=== PATIENT | male | born 1935 | race African-American/Black ===

== ENCOUNTER 2018-08-29 12:53 | Inpatient (IN) ==
[2018-08-29] MEDS ORDERED: NS 1,000 ML IV ONE (14:16)
[2018-08-29] MEDS ORDERED: ZOFRAN IV ONE (14:16)
[2018-08-29 14:49] LABS: BILIRUBIN URINE NEGATIVE (NEGATIVE); BLOOD URINE TRACE (NEGATIVE); CLARITY CLEAR (CLEAR); COLOR YELLOW; GLUCOSE URINE NEGATIVE (NEGATIVE); KETONE URINE TRACE mg/dL (NEGATIVE); LEUKOCYTES URINE TRACE (NEGATIVE); NITRITE URINE NEGATIVE (NEGATIVE); PROTEIN URINE 1+(30 mg/dL) mg/dL (NEGATIVE); UROBILINOGEN URINE 4 mg/dL
[2018-08-29 14:52] LABS: URINE SOURCE CLEAN CATCH
[2018-08-29 14:53] LABS: URINE CAST NONE SEEN /LPF; URINE CRYSTAL NONE SEEN /HPF; URINE EPITHELIAL CELLS >10 /HPF (<10); URINE YEAST NONE SEEN /HPF
[2018-08-29 14:54] LABS: URINE BACTERIA 2+ /HFP
[2018-08-29 15:06] LABS: BASO# 0.03 X1000 (0.0-0.2); BASO% 0.5 % (0.0-0.8); EOS# 0.07 X1000 (0.0-0.7); EOS% 1.1 % (0.0-10.0); HEMATOCRIT 43.7 % (42.0-52.0); HEMOGLOBIN 14.9 g/dL (14.0-18.0); IMM GRAN# 0.05 X1000 (0.0-0.04); IMM GRAN% 0.8 % (0.0-0.5); LYMPH# 0.69 X1000 (1.2-3.4); LYMPH% 10.8 % (20.5-51.1); MCH 26.5 PG (27-31); MCHC 34.1 g/dL (33-37); MCV 77.8 FL (81-99); MONO# 0.45 X1000 (0.11-0.59); MONO% 7.1 % (1.7-9.3); NEUT# 5.09 X1000 (1.4-6.5); NEUT% 79.7 % (42.2-75.2); PLT 218 X1000 (130-400); RBC 5.62 XMIL (4.7-6.1); RDW 17.3 % (11.5-14.5); WBC 6.38 X1000 (4.8-10.8)
[2018-08-29 15:16] LABS: ALBUMIN 4.6 g/dL (3.5-5.0); CALCIUM 10.1 mg/dL (8.8-10.2); CREATININE 3.4 mg/dL (0.7-1.2); TOTAL BILIRUBIN 2.3 mg/dL (0.20-1.00); TOTAL PROTEIN 7.5 g/dL (6.3-8.3)
--- NOTE | 2018-08-29 17:15 | Diag Imaging Result Doc PS360 ---
EXAM: CT ABD/PELVIS W/ORAL CONT ONLY HISTORY: PAIN TECHNIQUE: CT abdomen and pelvis without contrast COMPARISON: None. FINDINGS: There is a moderate-sized right-sided pleural effusion measuring 4.0 cm posteriorly and inferiorly in the midline with a tiny left pleural effusion measuring under 1 cm. Heart is mildly enlarged. There is basilar atelectasis. No calcified gallstones or adjacent inflammation. No focal hepatic normality identified on this noncontrasted exam. The spleen is not enlarged. No focal pancreatic abnormality. There is thickening to the adrenal glands. No renal stones. No hydronephrosis. No aortic aneurysm. Moderate atherosclerosis. No bowel obstruction. Normal appendix. No abscess. There is a small amount of ascites. The prostate measures 5.0 x 5.0 cm. The urinary bladder is minimally distended.1 there are degenerative changes at L5-S1. There are bilateral pars defect to the L5 vertebra, but no subluxation. IMPRESSION: 1.Pleural effusions with basilar atelectasis and mild cardiomegaly 2.Small amount of ascites 3.Prominent prostate This exam was performed using automated exposure control, adjustment of mA or kV according to patient size, and/or use of iterative reconstruction technique. Electronically signed by Flavio Paniagua 08/29/2018 5:13 PM
[2018-08-29 18:44] LABS: INR 1.22
[2018-08-29 18:45] LABS: PTT 39.6 Seconds (22.3-41.8)
--- NOTE | 2018-08-29 19:06 | PROVIDER DOCUMENTATION ---
This chart was entered by Kacy Dawn Scribe, acting as scribe for Viktor Simon DO. HPI-General Adult - General Source: patient - History of Present Illness -Gen Adult Nature of Presenting Problems: 83 yom presents to ED cc decreased appetite, weight loss, nausea, vomiting and constipation for 1 week. Pt denies pain. Pt has hx of HTN and gout. <Viktor Simon - Last Filed: 08/29/18 19:01> <Primitivo Hood - Last Filed: 08/29/18 23:23> - General Chief Complaint: Weight Loss Stated Complaint: NO APPETITE Time Seen by Provider: 08/29/18 14:01 Allergies/Adverse Reactions: Patient Allergies Allergy/AdvReac Type Severity Reaction Status Date / Time No Known Allergies Allergy Verified 04/30/16 11:43 Home Medications: Home Medication List Medication Instructions Recorded Confirmed Last Taken Type Chlorthalidone 12.5 mg PO DAILY 04/30/16 04/30/16 04/30/16 History Febuxostat [Uloric] 40 mg PO DAILY 04/30/16 04/30/16 04/30/16 History Hydralazine HCl 50 mg PO Q8H 04/30/16 04/30/16 04/30/16 History Losartan Potassium 100 mg PO DAILY 04/30/16 04/30/16 04/30/16 History Methylprednisolone [Medrol Dosepak] 4 mg PO DIRECTED #1 package 04/30/16 Unknown Rx Terazosin HCl 2 mg PO QHS 04/30/16 04/30/16 1 Day Ago History ~04/29/16 Review of Systems - Adult - REVIEW OF SYSTEMS - ADULT Constitutional: reports: see HPI, fatique. denies: chills, fever Eyes: reports: no symptoms reported Ears, Nose, Mouth & Throat: reports: no symptoms reported Cardiovascular: reports: no symptoms reported Respiratory: reports: no symptoms reported Gastrointestinal: reports: see HPI, constipation, nausea, poor appetite, vomiting. denies: diarrhea Genitourinary: reports: no symptoms reported Musculoskeletal: reports: no symptoms reported Integumentary: reports: no symptoms reported Neurological: reports: no symptoms reported Psychiatric: reports: no symptoms reported Endocrine: reports: no symptoms reported Hematologic/Lymphatic: reports: no symptoms reported Allergic/Immunologic: reports: no symptoms reported All Other Systems: Reviewed and Negative <Viktor Simon - Last Filed: 08/29/18 19:01> Past History - Adult - PAST MEDICAL HISTORY-ADULT Review of Records: reports: Nursing Assessment Review, Medications Reviewed, Social history reviewed & non-contributory. Major Childhood Illnesses: reports: denies history Cardiovascular: reports: denies history Respiratory: reports: denies history Gastrointestinal: reports: denies history Obstetrical/Gynecological: reports: denies history Genitourinary: reports: denies history Musculoskeletal: reports: denies history Neurological: reports: denies history Endocrine/Immune: reports: denies history Other Conditions: reports: denies history - IMMUNIZATION STATUS Childhood Immunizations: See Nurse Assessment Flu Vaccine: See Nurse Assessment - FAMILY HISTORY Family History: reviewed, not pertinent <Viktor Simon - Last Filed: 08/29/18 19:01> Physical Exam-General - PHYSICAL EXAM-ADULT Initial Vital Signs Reviewed: Yes - CONSTITUTIONAL General Appearance: appears well, alert, no apparent distress, thin. negative: anxious, combative - EYES Eyes: PERRL/EOMI, pink conjunctivae. negative: photophobia - HEAD, EARS, NOSE, MOUTH & THROAT HENMT: hearing deficit, TM abnormal (scarring right TM), TM obscurred by cerumen . negative: angioedema - NECK Neck: non-tender, full range of motion, supple, normal inspection. negative: Brudzinski's sign, carotid bruit - RESPIRATORY Respiratory: chest non-tender, lungs clear, normal breath sounds, no pleuratic chest pain, no respiratory distress, no accessory muscle use. negative: crackles, rales, rhonchi - CARDIOVASCULAR Cardiovascular: normal peripheral pulses, no edema, no gallop, no JVD, systolic murmur (1/6 at 2nd left intercostal space). negative: bradycardia, tachycardia - GASTROINTESTINAL (ABDOMEN) Abdominal Exam: normal bowel sounds, non tender, soft, no organomegaly. negative: rigid, rebound, tenderness - LYMPHATIC Lymphatic: no adenopathy. negative: striations - MUSCULOSKELETAL Back Exam: normal inspection. negative: swelling Extremity: normal range of motion, normal inspection. negative: deformity - SKIN Integumentary: normal color, normal turgor, warm/dry. negative: diaphoresis, jaundice - NEUROLOGIC Neurologic: hot braider II-XII nml as tested, grossly normal, no motor/sensory deficits. negative: facial droop, focal weakness - PSYCHIATRIC Psych/Mental Status: normal mood/affect, normal thought content, normal thought process, oriented x 3. negative: anxious <Viktor Simon - Last Filed: 08/29/18 19:01> Progress - PLAN OF CARE/RESULTS Progress/Plan/Lab Results: Vital Signs - 8 hr 08/29/18 13:00 Temperature 97.9 F Pulse Rate 105 H Respiratory Rate 18 Blood Pressure 126/92 O2 Sat by Pulse Oximetry 99 Laboratory Results - last 24 hr 08/29/18 14:30 Urine Color YELLOW Urine Clarity CLEAR Urine pH 5.0 Ur Specific Dahlgren 1.020 Urine Protein 1+(30 mg/dL) A Urine Ketones TRACE Urine Blood TRACE Urine Nitrite NEGATIVE Urine Bilirubin NEGATIVE Urine Urobilinogen 4 Urine WBC TRACE A Urine Glucose NEGATIVE Orders Category Date Time Status IV Insertion ORDERED Care 08/29/18 14:[address] ABD/PELVIS W/PO AND IV CON [CT] Stat Exams 08/29/18 14:13 Ordered CBC WITH ELECTRONIC DIFF [HEME] Stat Lab 08/29/18 14:38 Results COMPREHENSIVE METABOLIC PANEL [CHEM] Stat Lab 08/29/18 14:38 Received LIPASE [CHEM] Stat Lab 08/29/18 14:38 Received UA NIMS W/REFLEX CULT PL [URINALYSIS] Stat Lab 08/29/18 14:30 Results 0.9% Sodium Chloride Inj [Ns] 1,000 ml Med 08/29/18 14:16 Active IV 999 mls/hr Ondansetron [Zofran] Med 08/29/18 14:16 Discontinued 4 mg IV NOW ONE Result Diagrams: 08/29/18 14:38 08/29/18 14:38 - REASSESSMENT Reassessment #1 Status: improving (WITH HYDRATION) - CT/MRI 1 CT Study: Abdomen, Pelvis Impression: See EMR Report (IMPRESSION: 1.Pleural effusions with basilar atelectasis and mild cardiomegaly 2.Small amount of ascites 3.Prominent prostate This exam was performed using automated exposure control, adjustment of mA or kV according to patient size, and/or use of iterative reconstruction technique. Electronically signed by Flavio Paniagua 08/29/2018 5:13 PM) - CONSULTS/PCP/HOSPITALIST Notification #1 *Consult/PCP/Hospitalist*: DISCUSSED WITH [place] [facility] : THEY ARE SENDING PAPER WORK TO FILL OUT Time Discussed: 19:00 - CHANGE OF SHIFT REPORT (ED Provider) 1 Report Given and Care Transferred to:: DR ZHU [id number] [place] --PAPER WORK AND TRANSFER <Viktor Simon - Last Filed: 08/29/18 19:01> - PLAN OF CARE/RESULTS Progress/Plan/Lab Results: Vital Signs - 8 hr 08/29/18 20:03 08/29/18 21:37 08/29/18 23:05 Temperature 97.4 F L 97.9 F Pulse Rate 94 H 96 H Respiratory Rate 12 18 Blood Pressure 113/85 109/81 O2 Sat by Pulse Oximetry 98 98 08/29/18 23:06 Temperature Pulse Rate 93 H Respiratory Rate 20 Blood Pressure 115/83 O2 Sat by Pulse Oximetry 98 Laboratory Results - last 24 hr 08/29/18 08/29/18 08/29/18 14:30 14:38 14:38 WBC 6.38 RBC 5.62 Hgb 14.9 Hct 43.7 MCV 77.8 L MCH 26.5 L MCHC 34.1 RDW Std Deviation 17.3 H Plt Count 218 MPV Not Reportable Immature Gran % (Auto) 0.8 H Neut % (Auto) 79.7 H Lymph % (Auto) 10.8 L Taney % (Auto) 7.1 Eos % (Auto) 1.1 Baso % (Auto) 0.5 Immature Gran # (Auto) 0.05 H Neut # (Auto) 5.09 Lymph # (Auto) 0.69 L Taney # (Auto) 0.45 Eos # (Auto) 0.07 Baso # (Auto) 0.03 Segmented Neutrophils Not Reportable PT INR PTT (Actin FS) Sodium 146 H Potassium 5.0 Chloride 107 Carbon Dioxide 21 L Anion Gap 18 BUN 55 H Creatinine 3.4 H Estimated GFR/1.73 m2 17 BUN/Creatinine Ratio 16 Glucose 117 H Calculated Osmolality 307 Calcium 10.1 Total Bilirubin 2.30 H AST 33 ALT 22 Alkaline Phosphatase 74 Total Protein 7.5 Albumin 4.6 Globulin 3.0 Albumin/Globulin Ratio 2.0 Lipase 54 Plasma Lactate Urine Source CLEAN CATCH Urine Color YELLOW Urine Clarity CLEAR Urine pH 5.0 Ur Specific Dahlgren 1.020 Urine Protein 1+(30 mg/dL) A Urine Ketones TRACE Urine Blood TRACE Urine Nitrite NEGATIVE Urine Bilirubin NEGATIVE Urine Urobilinogen 4 Urine Microscopic RBC 10-20 A Urine WBC TRACE A Urine Microscopic WBC 10-20 A Ur Epithelial Cells >10 A Urine Crystals NONE SEEN Urine Bacteria 2+ Urine Casts NONE SEEN Urine Yeast NONE SEEN Urine Glucose NEGATIVE 08/29/18 08/29/18 14:38 17:33 WBC RBC Hgb Hct MCV MCH MCHC RDW Std Deviation Plt Count MPV Immature Gran % (Auto) Neut % (Auto) Lymph % (Auto) Taney % (Auto) Eos % (Auto) Baso % (Auto) Immature Gran # (Auto) Neut # (Auto) Lymph # (Auto) Taney # (Auto) Eos # (Auto) Baso # (Auto) Segmented Neutrophils PT 16.0 INR 1.22 PTT (Actin FS) 39.6 Sodium Potassium Chloride Carbon Dioxide Anion Gap BUN Creatinine Estimated GFR/1.73 m2 BUN/Creatinine Ratio Glucose Calculated Osmolality Calcium Total Bilirubin AST ALT Alkaline Phosphatase Total Protein Albumin Globulin Albumin/Globulin Ratio Lipase Plasma Lactate 3.7 H Urine Source Urine Color Urine Clarity Urine pH Ur Specific Dahlgren Urine Protein Urine Ketones Urine Blood Urine Nitrite Urine Bilirubin Urine Urobilinogen Urine Microscopic RBC Urine WBC Urine Microscopic WBC Ur Epithelial Cells Urine Crystals Urine Bacteria Urine Casts Urine Yeast Urine Glucose Orders Category Date Time Status IV Insertion ORDERED Care 08/29/18 14:[address] ABD/PELVIS W/ORAL CONT ONLY [CT] Stat Exams 08/29/18 16:[address] THORAX W/O CONTRAST [CT] Stat Exams 08/29/18 20:44 Completed BLOOD CULTURE [BLDCUL] Stat Lab 08/29/18 17:33 Results CBC WITH ELECTRONIC DIFF [HEME] Stat Lab 08/29/18 14:38 Completed COMPREHENSIVE METABOLIC PANEL [CHEM] Stat Lab 08/29/18 14:38 Completed LACTATE, PLASMA [CHEM] Stat Lab 08/29/18 17:33 Completed LIPASE [CHEM] Stat Lab 08/29/18 14:38 Completed PROTIME WITH INR [COAG] Stat Lab 08/29/18 14:38 Completed PTT [COAG] Stat Lab 08/29/18 14:38 Completed UA NIMS W/REFLEX CULT PL [URINALYSIS] Stat Lab 08/29/18 14:30 Completed URINE CULTURE [RM] Routine Lab 08/29/18 14:30 Received 0.9% Sodium Chloride Inj [Ns] 1,000 ml Med 08/29/18 14:16 Discontinued IV 999 mls/hr Ondansetron [Zofran] Med 08/29/18 14:16 Discontinued 4 mg IV NOW ONE Transfer/Admit Order [TRANSFER] Routine Transfer 08/29/18 19:39 Ordered Result Diagrams: 08/29/18 14:38 08/29/18 14:38 <Primitivo Hood - Last Filed: 08/29/18 23:23> Departure - Departure Date of Disposition Decision: 08/29/18 Certified Medical Emergency: Emergent - Critical Care Note This patient required my direct & personal management of CC.: No <Viktor Simon - Last Filed: 08/29/18 19:01> - Departure Time of Disposition Decision: 23:22 Certified Medical Emergency: Emergent - Critical Care Note This patient required my direct & personal management of CC.: No <Primitivo Hood - Last Filed: 08/29/18 23:23> - Departure DIAGNOSIS: Pleural effusion, right, Hyperbilirubinemia, CHF (congestive heart failure) Acute renal failure Qualifiers: Acute renal failure type: unspecified Qualified Code(s): N17.9 - Acute kidney failure, unspecified Disposition: ADMITTED INPATIENT 09 Condition: Stable Referrals and Follow-Ups: None,PCP [Primary Care Provider] - Attestation - Physician/ SHANDRA Attestation Patient care was provided by Advanced Practice Provider:: No The physician spent face to face time with patient:: Yes Advanced Practice Provider documentation review:: Supervising physician onsite and consulted in the evaluation and care of this patient. The physician did have a face to face encounter with the patient. <Viktor Simon - Last Filed: 08/29/18 19:01> - Physician/ SHANDRA Attestation Patient care was provided by Advanced Practice Provider:: No The physician spent face to face time with patient:: Yes Advanced Practice Provider documentation review:: Supervising physician onsite and consulted in the evaluation and care of this patient. The physician did have a face to face encounter with the patient. <Primitivo Hood - Last Filed: 08/29/18 23:23> This chart was documented by the indicated scribe, (Kacy Dawn Scribe) and accurately reflects the services I performed and decisions made by me, Viktor Simon DO, as attested by the provider's signature.
--- NOTE | 2018-08-29 21:28 | Diag Imaging Result Doc PS360 ---
EXAM: CT THORAX W/O CONTRAST HISTORY: pleural effusion TECHNIQUE: CT chest without contrast COMPARISON: None. FINDINGS: There is a moderate-sized right pleural effusion measuring 4.2 cm posteriorly and inferiorly in the midline with a small left effusion measuring less than 1 cm. The heart is enlarged. There is pulmonary edema. Lower lobe atelectasis, right greater than left. No air bronchograms. No bronchiectasis. Prominent atherosclerosis. There are several calcified mediastinal nodes. IMPRESSION: Congestive failure. This exam was performed using automated exposure control, adjustment of mA or kV according to patient size, and/or use of iterative reconstruction technique. Electronically signed by Flavio Paniagua 08/29/2018 9:25 PM
[2018-08-30] MEDS ORDERED: NS 1,000 ML IV ONE (00:23)
[2018-08-30] MEDS: LOPRESSOR PO SCH ×3 (00:55→21:08)
[2018-08-30] MEDS: SODIUM BICARBONATE PO SCH ×3 (00:56→21:09)
[2018-08-30] MEDS: ZYLOPRIM PO SCH ×2 (00:56→08:33)
[2018-08-30 09:14] LABS: BASO# 0.02 X1000 (0.0-0.2); BASO% 0.3 % (0.0-0.8); EOS# 0.17 X1000 (0.0-0.7); EOS% 2.6 % (0.0-10.0); HEMATOCRIT 39.4 % (42.0-52.0); HEMOGLOBIN 13.2 g/dL (14.0-18.0); IMM GRAN# 0.01 X1000 (0.0-0.04); IMM GRAN% 0.2 % (0.0-0.5); LYMPH# 0.87 X1000 (1.2-3.4); LYMPH% 13.6 % (20.5-51.1); MCH 26.4 PG (27-31); MCHC 33.5 g/dL (33-37); MCV 78.8 FL (81-99); MONO# 0.46 X1000 (0.11-0.59); MONO% 7.2 % (1.7-9.3); NEUT# 4.89 X1000 (1.4-6.5); NEUT% 76.1 % (42.2-75.2); PLT 185 X1000 (130-400); RDW 17.1 % (11.5-14.5); WBC 6.42 X1000 (4.8-10.8)
[2018-08-30 09:49] LABS: CALCIUM 9.4 mg/dL (8.8-10.2); CREATININE 3.3 mg/dL (0.7-1.2); POTASSIUM 5.6 mmol/L (3.5-5.1); TOTAL BILIRUBIN 1.9 mg/dL (0.20-1.00); TOTAL PROTEIN 6.6 g/dL (6.3-8.3)
[2018-08-30 09:52] LABS: FREE T4 1.33 ng/dL (0.93-1.70)
[2018-08-30] MEDS ORDERED: VELTASSA PO ONE (10:19)
[2018-08-30] MEDS ORDERED: ALBUTEROL 0.5% INH CONC FOR HYPERKALEMIA INH ONE (10:19)
[2018-08-30] MEDS ORDERED: CALCIUM GLUCONATE IV PUSH ONE (10:19)
[2018-08-30 10:54] LABS: UR CREAT RANDOM 117.4 mg/dL (14-26)
--- NOTE | 2018-08-30 11:17 | EKG Report ---
Test Performed on : 08/30/2018 11:15:41 AM Test Reason : CHF Blood Pressure : / mmHG Vent. Rate : 122 BPM Atrial Rate : 122 BPM P-R Int : 208 ms QRS Dur : 104 ms QT Int : 312 ms P-R-T Axes : 032 -37 075 degrees QTc Int : 444 ms Sinus tachycardia. Left axis deviation Inferior infarct (cited on or before 30-APR-2016) Anteroseptal infarct (cited on or before 30-APR-2016) Abnormal ECG When compared with ECG of 30-APR-2016 12:26, PA interval has decreased Vent. rate has increased BY 49 BPM Nonspecific T wave abnormality has replaced inverted T waves in Inferior leads Confirmed by Primitivo Hood MD ([id number]) on 09/10/2018 10:36:27 AM
[2018-08-30] MEDS: ZOSYN 2.25 GM in NS 50 ML IV SCH ×2 (11:35→21:09)
--- NOTE | 2018-08-30 12:01 | HISTORY AND PHYSICAL ---
PRIMARY CARE PHYSICIAN: Unknown. CHIEF COMPLAINT: Weight loss. HISTORY OF PRESENT ILLNESS: Mr. Nayak is an 83-year-old male with a history of BPH, CKD, unknown what his baseline is, hypertension, and gout, who presents to our ER with 1 month of unintentional weight loss, postprandial nausea and vomiting. He has not been able to really hold down any food for the past month and states that he has lost 20 pounds. He denies any chest pain or shortness of breath. No overt abdominal pain. He does report constipation type symptoms. He has not had a normal bowel movement for around 1 month as well. He denies lower extremity edema. No orthopnea. But he does report an occasional dry cough. No fever or chills. In the ER last night, he had labs and diagnostics done. He was noted to have a creatinine of 3.4 and a total bilirubin of 2.3 and a lactic acid of 3.7. He did have a chest CT done which showed moderate size pleural effusion, pulmonary edema, left lower lobe atelectasis. Abdomen and pelvis CT showed small amount of ascites but nothing acute in the abdomen. He does not have a history of congestive heart failure. So given all of that, decision was made to admit him for further treatment and evaluation. PAST MEDICAL HISTORY: 1. CKD, stage unknown. 2. Hypertension. 3. Gout. 4. History of stroke x2 without residual focal deficits. PAST SURGICAL HISTORY: Carpal tunnel release. SOCIAL HISTORY: Denies tobacco, alcohol or drug use. He is . He sees physicians at [place]. FAMILY HISTORY: Noncontributory. REVIEW OF SYSTEMS: A 14-point review of systems was obtained and found to be negative with the exception of the HPI. ALLERGIES: No known drug allergies. HOME MEDICATIONS: Allopurinol 100 mg p.o. b.i.d., Lopressor 25 mg b.i.d., sodium bicarbonate 650 mg p.o. b.i.d., terazosin 2 mg p.o. at bedtime. PHYSICAL EXAMINATION: GENERAL: An elderly and somewhat frail appearing 83-year-old male lying in hospital bed, in no acute distress. NEUROLOGICAL: He is hard of hearing but overall awake, alert and oriented. Follows commands without focal deficits. HEENT: Head is atraumatic and normocephalic. Pupils are equal, round and reactive to light. Oral mucosa is moist. NECK: Trachea is midline. CHEST: Diminished but clear to auscultation bilaterally. CARDIOVASCULAR: Regular rate and rhythm. S1 and S2 noted. There are no appreciable murmurs. GASTROINTESTINAL: Soft, nondistended and nontender. Bowel sounds are active. EXTREMITIES: Trace edema. Pulses 1+ bilaterally. DIAGNOSTIC DATA: Thorax, abdomen and pelvis CT shows pleural effusions most prominent on the right, cardiomegaly, pulmonary edema, small amount of ascites, prominent prostate. Labs from this morning showed WBC of 6.42, hemoglobin 13.2, hematocrit 39.4, platelet count 185. INR is 1.22. Sodium is 145, potassium 5.6, chloride 109, CO2 is 19, anion gap is 17, BUN is 56, creatinine 3.3, glucose is 127. Calcium 9.4. Total bilirubin is 1.9. Transaminases are normal. Troponin is 0.079. ProBNP is 25,519. Repeat lactate 2.5. TSH 9.35, free T4 is 1.33. UA does show 2+ bacteria but greater than 10 epithelial cells. ASSESSMENT AND PLAN: 1. Postprandial nausea with 20-pound weight loss. Unclear as to the etiology. He does not have any overt abdominal pain which would point to possibly cholecystitis or cholelithiasis. The CT was noncontrasted, however. We are going to check a right upper quadrant ultrasound and see how he does with liquids. He does have isolated hyperbilirubinemia with normal AST/ALT. His abdomen exam is benign. He may need a GI consult. We will monitor for now. 2. Apparent new onset congestive heart failure. The patient has an extremely high ProBNP, while he does have creatinine of 3.4, he does have pleural effusions and pulmonary edema. Interestingly enough, he is not edematous or complaining much of dyspnea. We will check an echocardiogram, continue to trend cardiac enzymes and him some Lasix. EKG is abnormal showing tachycardia, possibly 2:[address] Pierson has been consulted, we will transfer him to CICU at [facility] for cardiac eval and treatment. 3. Chronic kidney disease, baseline and stage unknown. He does take sodium bicarb which we will continue. We will try to obtain records from the [place] regarding his CKD and what stage he has. We will check urine electrolytes as well. He is slightly hyperkalemic, which he has been treated for, we will recheck his electrolytes later today and continue to treat accordingly. 4. Elevated anion gap metabolic acidosis. He does have an elevated lactate, but he also has chronic kidney disease, hypothyroidism and possibly congestive heart failure. We will check acetone levels as he has not been eating, so starvation ketosis is also a possibility. He does not drink or use illicit substances per his report. 5. Lactic acidosis. Possibly from congestive heart failure and hypoperfusion. We will go ahead with zosyn, renally dosed until infection has been ruled out. Blood cultures have been obtained. 6. Hypothyroidism. Unclear if he has a known history. We do not have medical records. We will start him on synthroid and monitor response. 7. DVT prophylaxis with subcutaneous heparin given renal failure. Pt will transfer to [facility] main CICU. Further recommendations to follow. Dictated by LUO Morales for Shawn Stewart MD cc: LOU Morales MD [facility]
[2018-08-30 13:26] LABS: ACETONE SERUM NEGATIVE (NEGATIVE)
[2018-08-30 13:39] LABS: ACETAMINOPHEN < 1.2 ug/mL (10-30); SALICYLATES < 3.00 mg/dL (3-10)
--- NOTE | 2018-08-30 14:19 | Diag Imaging Result Doc PS360 ---
EXAM: US GB < RUQ (LIMITED) INDICATION: hyperbilirubinemia, post prandial n/v COMPARISON: None. FINDINGS: A right pleural effusion is noted incidentally. The gallbladder appears normal with no stones, wall thickening, or pericholecystic fluid. The common bile duct is normal in diameter. Sonographic Victor's sign was reported to be negative. There is a small amount of ascites tracking around the liver. The liver is grossly unremarkable. Portal venous flow is hepatopetal but pulsatile, which is often associated with congestive heart failure. The visualized pancreas is unremarkable. The aorta and IVC are grossly unremarkable. The right kidney is grossly unremarkable. IMPRESSION: 1.Incidental right pleural effusion. 2.Small amount of ascites tracking around the liver. 3.Pulsatile portal venous flow, which can be associated with congestive heart failure. Electronically signed by Lit Gonzalez 08/30/2018 2:17 PM
[2018-08-30 14:50] LABS: CALCIUM 9.1 mg/dL (8.8-10.2); CREATININE 3.5 mg/dL (0.7-1.2); POTASSIUM 3.8 mmol/L (3.5-5.1)
[2018-08-30] MEDS ORDERED: LASIX IV ONE (16:24)
--- NOTE | 2018-08-30 16:52 | CARDIOLOGY CONSULTATION ---
DATE: 08/30/2018 REASON FOR CONSULTATION: Cardiology was consulted for tachycardia, cardiomegaly. HISTORY OF PRESENT ILLNESS: Mr. Nayak is an 83-year-old gentleman who is followed up at the [facility]. He has chronic kidney disease and hypertension, came to the emergency room with 1 month loss of weight with nausea and vomiting postprandially. He says that he eats and after a while he cannot digest and he throws up. He lost about 20 pounds. He from a cardiac standpoint does not complain of any chest pain. He has not had any orthopnea, paroxysmal nocturnal dyspnea. He has chronic kidney disease. His BUN was elevated. Creatinine of 3.4. Total bilirubin 2.3. Lactic acid 3.7. He had a CT scan done which showed pleural effusion with pulmonary edema, left lower lobe atelectasis. He has had a stroke before and he also has gout. He is not known to have any previous cardiac disease. REVIEW OF SYSTEMS: A 14 point review of system was done.GI System: As above. Cardiovascular System: No chest pain. He has shortness of breath at best mild. There are no palpitations. There is no syncope. There is no orthopnea, paroxysmal nocturnal dyspnea. Endocrine System: Stable. PAST MEDICAL HISTORY: 1. Hypertension. 2. Chronic kidney disease. 3. Gout. 4. History of CVA in the past. PAST SURGICAL HISTORY: Carpal tunnel. HOME MEDICATIONS: Allopurinol 100, Lopressor 25 b.i.d., bicarbonate, terazosin 2 mg at bedtime. ALLERGIES: He is not known to be allergic to any medication. PHYSICAL EXAMINATION: Vital Signs: Blood pressure was 120/80, Heart rate 110. Cardiovascular system: First and second heart sounds were heard. There was a faint systolic murmur. Respiratory System: Normal air entry. A few scattered crepitations. Abdomen: Soft. Nontender. There was no guarding or rigidity. Bowel sounds were heard. Central nervous system: Alert and oriented. Was moving all 4 extremities. Extremities: Examination of extremities revealed no pedal edema. HEENT: Atraumatic, normocephalic. Pupils were equal and reacting to light. LABORATORY EXAMINATION: Sodium 144, potassium 3.8, BUN 57, creatinine 3.7. ProBNP elevated at 25,519. TSH 9.32. Hematology: WBC 6.42, hemoglobin 13.2, hematocrit 39.4, eosinophil count was normal, platelet count 185,000. Electrocardiogram revealed normal sinus rhythm, biatrial enlargement with nonspecific ST-T changes. ASSESSMENT AND PLAN: Mr. Deny Nayak is an 83-year-old gentleman with a history of hypertension, chronic kidney disease. He comes in with complaints of nausea and vomiting postprandially and has lost 20 pounds. He came to the emergency room and was admitted. From a cardiac standpoint, no previous cardiac history. His echocardiogram was done, please see detailed echocardiogram report. He has severe LV dysfunction. Chest CT revealed congestive heart failure. Abdomen and pelvis CT revealed pleural effusion with a small amount of ascites. RECOMMENDATIONS: 1. we will start him on Coreg 6.25 mg twice a day in addition to BiDil 1 tablet twice a day. 2. I am not giving him any diuretics at the present time. However, he has chronic renal insufficiency. We will consult Dr. Aguila. More than likely he will need some diuresis to start with. I will give him 1 dose of Lasix 40 now. In addition, we will put him on aspirin 81 mg a day. As far as the etiology of his severe LV dysfunction is concerned, no significant symptoms. He has had a CVA in the past. No diagnosis of atrial fibrillation is noted. We will put him on telemetry to see if we have any significant dysrhythmias. Thank you for the consult. We will follow hospital course. cc: MD Miguel Reyes MD
[2018-08-30] MEDS: COREG PO SCH ×2 (17:20→21:31)
[2018-08-30] MEDS: ASPIRIN PO SCH (17:21)
--- NOTE | 2018-08-30 17:33 | HISTORY AND PHYSICAL ---
ADDENDUM: Patient seen and examined by myself. Full note dictated and discussed with nurse practitioner. Patient is an 83-year-old male who presented to the hospital with a complaint of decreased appetite, weight loss, nausea for the past several weeks. He is a somewhat poor historian. Does have a history of gout, hypertension but denies any previous history of congestive heart failure. We will admit him to the hospital, consult Cardiology, perform an echocardiogram. He is not having renal failure with a creatinine at 3.4 unsure if this is chronic in nature. Will continue to follow. Please see full note dictated by nurse practitioner. cc: MD Miguel Hoang MD
[2018-08-30] MEDS ORDERED: HYTRIN PO SCH (21:00)
[2018-08-30] MEDS: BIDIL PO SCH (21:08)
[2018-08-30] MEDS: HYTRIN PO SCH (21:08)
[2018-08-30] MEDS: HEPARIN SUBQ SCH (21:09)
[2018-08-31 05:25] LABS: HEMATOCRIT 34.3 % (42.0-52.0); HEMOGLOBIN 11.4 g/dL (14.0-18.0); MCH 26.6 PG (27-31); MCHC 33.2 g/dL (33-37); PLT 149 X1000 (130-400); RBC 4.29 XMIL (4.7-6.1); RDW 16.8 % (11.5-14.5); WBC 5.07 X1000 (4.8-10.8)
[2018-08-31] MEDS: SYNTHROID PO SCH ×2 (05:38→06:05)
[2018-08-31 05:51] LABS: ALB/GLOB RATIO 1.7; ALBUMIN 3.6 g/dL (3.5-5.0); CREATININE 3.5 mg/dL (0.7-1.2); MAGNESIUM 1.9 mg/dL (1.5-2.7); POTASSIUM 4.4 mmol/L (3.5-5.1); TOTAL BILIRUBIN 1.53 mg/dL (0.20-1.00); TOTAL PROTEIN 5.7 g/dL (6.3-8.3)
--- NOTE | 2018-08-31 07:35 | EKG Report ---
Test Performed on : 08/30/2018 4:10:07 PM Test Reason : chf/afib Blood Pressure : / mmHG Vent. Rate : 111 BPM Atrial Rate : 111 BPM P-R Int : 232 ms QRS Dur : 104 ms QT Int : 338 ms P-R-T Axes : 067 -30 068 degrees QTc Int : 459 ms Poor data quality, interpretation may be adversely affected Sinus tachycardia. with 1st degree AV block. with frequent premature ventricular complexes. Left axis deviation Possible Anterior infarct (cited on or before 30-APR-2016) Abnormal ECG When compared with ECG of 30-AUG-2018 11:15, (Unconfirmed) premature ventricular complexes. are now present Questionable change in initial forces of Septal leads Confirmed by Gama RIVERA, Nicholas Ruiz ([id number]) on 08/31/2018 7:59:08 AM
[2018-08-31] MEDS: LOPRESSOR PO SCH ×3 (08:27→20:08)
[2018-08-31] MEDS: HEPARIN SUBQ SCH ×2 (08:28→20:08)
[2018-08-31] MEDS: BIDIL PO SCH ×2 (08:28→21:10)
[2018-08-31] MEDS: ASPIRIN PO SCH (08:28)
[2018-08-31] MEDS: SODIUM BICARBONATE PO SCH ×2 (08:28→20:08)
[2018-08-31] MEDS: COREG PO SCH ×2 (08:28→20:08)
[2018-08-31] MEDS: ZOSYN 2.25 GM in NS 50 ML IV SCH ×2 (08:31→20:07)
--- NOTE | 2018-08-31 09:38 | NEPHROLOGY CONSULTATION ---
DATE: 08/31/2018 REASON FOR ADMISSION: 1. Recent 20 pound weight loss of unclear etiology. 2. New onset congestive heart failure. 3. Chronic kidney disease. CONSULTING PHYSICIAN: Miguel Weaver MD HISTORY OF PRESENT ILLNESS: This is an 83-year-old gentleman with a past medical history of hypertension, gout, history of CVA x2, without residual leg and apparently chronic kidney disease. He follows at the [facility]. He came into the hospital secondary to a 1-month unintentional weight loss of apparently 20 pounds. He denies any chest pain or shortness of breath. He has had no abdominal pain. He does have some mild constipation. He apparently has vomiting after eating that is fairly consistent. No coffee-ground emesis. In the emergency room he was originally found to have a creatinine of 3.4, lactic acid of 3.7, bilirubin of 2.3. He has CO2 of 14. Albumin of 3.6. His urine had 1+ protein and trace WBCs. He had a FENa score of 1.7. His toxicology screen was negative. He had a WBC of 5 this morning and a hemoglobin of 11.4. He also had a CT of the abdomen and pelvis that showed a moderate-sized pleural effusion, pulmonary edema and left lower lobe atelectasis. He has a small amount of ascites, but nothing acute in the abdomen. He was admitted to the hospital for further workup and treatment. The patient has been found to have a new onset of congestive heart failure and a mild abnormal EKG and some tachycardia. He was evaluated by Cardiology who found that he had severe LV dysfunction on his echo. He had congestive heart failure noted on the CT. He was initiated on Coreg and was dosed with 1 dose of Lasix. He did not have any diagnosis of atrial fibrillation. It was noted the patient had a CVA in the past. The patient's creatinine is really unchanged since admission. We have been asked to see him and assist with management. PAST MEDICAL HISTORY: Hypertension. Gout. CKD. History of cerebrovascular accident. SURGICAL HISTORY: He has had a carpal tunnel release. ALLERGIES: None. HOME MEDICATIONS: Allopurinol. Lopressor. Sodium bicarbonate. Terazosin. FAMILY HISTORY: Noncontributory. SOCIAL HISTORY: Denies ETOH, tobacco or illicit drug use. His physicians are at the [facility]. REVIEW OF SYSTEMS: see history of present illness for pertinent positives. INPUT AND OUTPUT: Intake 805 mL. Output, he has been incontinent. PHYSICAL EXAMINATION: Vital Signs: Temperature 98.1 degrees, pulse 84, respiratory rate 14, blood pressure 92/68. General: This is an elderly gentleman resting in bed. He is drowsy. He does not appear in any distress. HEENT: Normocephalic, atraumatic. JARRED. His conjunctivae are pink. His oral mucosa is moist. Neck: Supple. He does have some JVD in a reclined position. Cardiovascular: Reveals a regular rate and rhythm with a systolic murmur. Pulmonary: There are no rales or wheeze. No increased work of breathing. Abdomen: Soft, with positive bowel sounds. : Again incontinent, voiding. Extremities: No clubbing, cyanosis. There is no edema. He is moving his extremities. Integumentary: Skin is warm and dry. Neurologic: Appears grossly nonfocal. LABORATORY DATA: WBC of 5, hemoglobin 11.4. Sodium 140, potassium 4.4, CO2 19, BUN 58, creatinine 3.5 (3.5, 3.3, 3.4). CO2 19. He had a FENa of 1.7. Of note, he had a creatinine in 2017 of 3.8. ASSESSMENT AND PLAN: 1. Acute kidney injury. The patient's renal function has been stable during hospitalization. The data that we have from a couple years ago indicates a baseline creatinine of 3.8. His FENa score does not indicate any prerenal issues, such as fluid volume depletion. His imaging does not show any new renal issues. We are awaiting labs from the [facility]. Likely the patient just needs to be staged at this point with a 24-hour urine if we are able to obtain. His current labs indicate a GFR of 20. He does not have any indication for intervention in the form of dialysis at this time. We continue to follow closely. 2. Nausea, vomiting, 20-pound weight loss. This does not appear uremic in nature. The patient does have a Gastroenterology consult in progress. His albumin is noted to be 3.6. We will follow along. 3. New-onset congestive heart failure. Followed by Cardiology. His renal function is such that if he needs diuretics, from their standpoint we are acceptable with this. The patient does not have profound edema or dyspnea. His pleural effusion and mild ascites, consider workup for other etiology. Dictated by LOU Navarro for Lucian Aguila MD Face to face encounter, data reviewed, discussed with Julián Vásquez on 08/31/18. I agree with the above assessment and plan of care. cc: MD Miguel Vega MD [facility]
--- NOTE | 2018-08-31 10:05 | PROGRESS NOTE ---
DATE: 08/31/2018 SUBJECTIVE: The patient is resting comfortably in bed. He is not complaining of chest pain or shortness of breath. Blood pressure has been mostly in the 90s and 100s. He is not complaining of abdominal pain either. Decreased appetite. OBJECTIVE: Vital Signs: Temperature 97.6 degrees, pulse 85, respiratory rate 16, blood pressure 98/66, and oxygen saturation 96 percent on room air. HEENT: Head normocephalic. No trauma. PERRLA. Neck: Supple. No JVD. No masses. Central trachea. Chest: Decreased breath sounds at the bases with some scattered crackles and rales. Abdomen: Soft, nontender, and nondistended. No hepatosplenomegaly. Extremities: No edema. No clubbing. No cyanosis. Neurological: The patient is alert and oriented x3. No focal neurological deficits. LABORATORY: WBC 5, hemoglobin 11.4, hematocrit 34.3, and platelets 149,000. Sodium 140, potassium 4.4, chloride 107, bicarbonate 19, BUN 58, creatinine 3.5, glucose 99, calcium 10 and magnesium 1.9. ASSESSMENT AND PLAN: 1. Postprandial nausea with 20 pounds weight loss, of unclear etiology. He is able to tolerate a little bit of food. He is not complaining of abdominal pain. I will put him on PPIs twice a day. CT of the abdomen without contrast showed pleural effusion, small amount of ascites and prominent prostate. Abdominal ultrasound showed incidental right pleural effusion and small amount of ascites, and pulsatile portal venous flow which can be associated with CHF. I do not have any previous history of this patient. I will ask for a CEA. I will wait for those results, and probably we need to consult Gastroenterology Department if he does not get better. 2. CHF with severe LV dysfunction. Chest CT scan also showed CHF and also pleural effusion. Cardiology Department already evaluated this patient. He is not complaining of shortness of breath, but his kidney function is elevated. We do not have the previous records. Nephrology Department has been consulted. He is not on diuretics at this moment. 3. Kidney dysfunction, probably chronic. Nephrology Department has been consulted. We will wait for recommendations. 4. Elevated anion gap metabolic acidosis, better decreased from 25 to 14. 5. Hypothyroidism. It is unclear if he has a known history. He has been placed already on Synthroid. We will need to monitor the response. 6. Hyperkalemia, resolved. 7. Deep vein thrombosis prophylaxis with heparin. 8. Gastrointestinal prophylaxis with omeprazole. cc: Miguel Weaver MD
--- NOTE | 2018-08-31 14:25 | ECHO REPORT ---
ORDER DATE: 08/30/2018 INTERPRETING PHYSICIAN: Jayme Pierson MD PROCEDURE: 2D echocardiogram. ECHOCARDIOGRAPHIC MEASUREMENTS: 1. Interventricular septum 1.0 cm. 2. Left ventricular posterior wall 0.7 cm. 3. Diastolic diameter 5.8 cm. 4. Left atrium 3.8 cm. 5. Aorta 3.2 cm. SUMMARY OF THE 2-DIMENSIONAL IMAGIN. The aortic valve leaflets are trileaflet. 2. Pulmonic valve was normal. 3. There was mild pulmonary regurgitation. 4. Tricuspid valve was normal. 5. Peak velocity across the tricuspid valve was 3.9 m/sec. 6. Pulmonary artery systolic pressure of 70 mmHg. 7. There is significant pulmonary arterial hypertension. 8. There is moderate tricuspid regurgitation. 9. Peak velocity across the aortic valve less than 2 m/sec. 10. By Doppler studies, there is no aortic stenosis. 11. There is trace aortic regurgitation. 12. Left ventricle is dilated with severely reduced left ventricular systolic function. 13. Estimated ejection fraction of 20%. 14. There is severe global hypokinesis. 15. There is diastolic dysfunction. 16. There is moderate to severe mitral regurgitation. 17. There is no pericardial effusion or obvious intracardiac mass or thrombus seen. cc: MD Miguel Reyes MD
[2018-08-31] MEDS: PRILOSEC PO SCH (20:08)
[2018-08-31] MEDS: HYTRIN PO SCH (20:09)
[2018-09-01] MEDS: SYNTHROID PO SCH (06:15)
[2018-09-01] MEDS: PRILOSEC PO SCH ×2 (06:15→20:29)
--- NOTE | 2018-09-01 06:58 | Diag Imaging Result Doc PS360 ---
EXAM: CHEST-PORTABLE HISTORY: dyspnea TECHNIQUE: Portable chest single view COMPARISON: 04/30/2016 FINDINGS: Poor inspiratory effort. The heart is enlarged on the current exam. There is pulmonary edema on the current study. A small right pleural effusion has developed since the prior exam. IMPRESSION: Congestive failure Electronically signed by Flavio Paniagua 09/01/2018 6:56 AM
[2018-09-01 07:53] LABS: HEMATOCRIT 35.5 % (42.0-52.0); MCH 26.8 PG (27-31); MCHC 33.8 g/dL (33-37); MCV 79.4 FL (81-99); PLT 138 X1000 (130-400); RBC 4.47 XMIL (4.7-6.1); RDW 16.7 % (11.5-14.5); WBC 4.85 X1000 (4.8-10.8)
--- NOTE | 2018-09-01 08:10 | NEPHROLOGY PROGRESS NOTE ---
DATE: 09/01/2018 SUBJECTIVE: He is lying in bed on room air with no complaints today. He states he has been ambulatory without difficulty. OBJECTIVE: Vital Signs: Blood pressure 102/69, heart rate 77, respiration 18, afebrile. General: No acute distress. Skin: Warm and dry. Neck: Neck veins are not appreciated. Heart: Regular. No rubs. Lungs: Equal. No crackles. Abdomen: Soft, nontender. Bowel sounds present. Extremities: With no edema, clubbing or cyanosis. IMPRESSION: 1. Nausea, anorexia, weight loss. Workup thus far has not yielded a diagnosis. Certainly, it could be related to his renal dysfunction. We will quantify his kidney function, but this can certainly be done as an outpatient if he is otherwise ready for discharge. 2. Ischemic cardiomyopathy. Left ventricular ejection fraction 20% with pulmonary artery pressure 70 mL mmHg. He has not had overt pulmonary edema at this time. 3. Metabolic acidosis. Bicarbonate 19 today. He is on sodium bicarbonate 650 twice daily. I will increase that to 1300 mg twice daily. cc: MD Miguel Vega MD
[2018-09-01 08:19] LABS: ALB/GLOB RATIO 1.6; ALBUMIN 3.7 g/dL (3.5-5.0); CALCIUM 9.8 mg/dL (8.8-10.2); CREATININE 3.5 mg/dL (0.7-1.2); MAGNESIUM 1.9 mg/dL (1.5-2.7); POTASSIUM 4.6 mmol/L (3.5-5.1); TOTAL BILIRUBIN 1.75 mg/dL (0.20-1.00)
[2018-09-01] MEDS: COREG PO SCH ×2 (09:24→20:29)
[2018-09-01] MEDS: BIDIL PO SCH ×2 (09:24→20:28)
[2018-09-01] MEDS: ASPIRIN PO SCH (09:24)
[2018-09-01] MEDS: HEPARIN SUBQ SCH ×2 (09:24→20:29)
[2018-09-01] MEDS: ZOSYN 2.25 GM in NS 50 ML IV SCH ×2 (09:24→20:29)
[2018-09-01] MEDS: LOPRESSOR PO SCH (09:25)
[2018-09-01] MEDS: SODIUM BICARBONATE PO SCH ×2 (09:25→20:28)
--- NOTE | 2018-09-01 16:29 | CARDIOLOGY PROGRESS NOTE ---
DATE: 09/01/2018 PROBLEM LIST: 1. Severe LV dysfunction. 2. Congestive heart failure. 3. Mitral regurgitation. 4. Chronic renal failure. 5. Hypertension. SUBJECTIVE: Patient was seen today. He does not complain of chest pain. His shortness of breath has improved somewhat. There are no palpitations. There is no dizziness or syncope. OBJECTIVE: On examination, blood pressure was 103/68. First and second heart sounds were heard. There was a soft systolic murmur. Respiratory System: Bibasilar scattered inspiratory crepitations. Abdomen was soft, nontender. There was no guarding or rigidity. Bowel sounds were heard. Central nervous system: Alert and oriented, moving all 4 extremities. LABORATORY EXAMINATION: Revealed WBC 4.85, hemoglobin 12, hematocrit 35, platelet count of 138. Sodium 140, potassium 4.6, BUN 61, creatinine 3.5. RECOMMENDATIONS: 1. From a cardiac standpoint, we will discontinue the Lopressor, continue him on Coreg and BiDil. He is not on CORINNA inhibitors, given his chronic renal insufficiency with a BUN of 61 and creatinine of 3.5. 2. He has congestive heart failure. I had given him a dosage of Lasix 40 mg IV a couple of days back. We will leave him on 40 mg p.o. Lasix daily. 3. Chronic renal insufficiency. Followed by Dr. Aguila. I have not made any other changes. cc: MD Miguel Reyes MD
--- NOTE | 2018-09-01 18:22 | PROGRESS NOTE ---
DATE: 09/01/2018 SUBJECTIVE: Patient has no major complaints. OBJECTIVE: Blood pressure 97/67, heart rate 74, respiratory rate 16, temperature 97.4 degrees, 99% on room air. Cardiovascular: Regular rate and rhythm. Pulmonary: Bilateral breath sounds, clear to auscultation. GI: Soft, nontender, nondistended. Bowel sounds are positive. LABORATORY DATA: White count 4, hemoglobin and hematocrit 12 and 35, platelets 138,000. Creatinine of 3.5, BUN is 61. Troponin was mildly elevated, but he has renal failure. ASSESSMENT AND PLAN: Problem list: 1. Weight loss, cachexia. Unclear issue. We are going to continue to follow. No clear malignancy based on current scanning. 2. Congestive heart failure with mild decompensation. We will continue to follow his renal function, precluding diuretics at this time but he may require those subsequently. 3. Acute renal failure with chronic renal failure. Current stage is 4. We will continue to monitor. Nephrology is assaying medications. 4. Hypothyroidism. Continue regular medications. His thyroid function: He has a high TSH but a normal free T4, which technically I would describe as a sick euthyroid. He has been placed on medications, but I am not sure technically. I am going to stop it. (1) It would not explain his weight loss; (2) I think he is at risk for cardiac decompensation if he becomes hyperthyroid. 5. Disposition pending his clinical status. I think he is probably close to getting home and he is able to get up and around, so we will continue to follow. cc: MD Miguel Garcia MD
[2018-09-01] MEDS: HYTRIN PO SCH (20:29)
[2018-09-02] MEDS: PRILOSEC PO SCH ×2 (06:24→20:30)
--- NOTE | 2018-09-02 07:03 | NEPHROLOGY PROGRESS NOTE ---
DATE: 09/02/2018 SUBJECTIVE: Mr. Nayak is lying in bed asleep but easily arousable. No shortness of breath, nausea, or vomiting. Remains anorexic. OBJECTIVE: Vital Signs: Blood pressure 96/64, heart rate 72, respirations 18, afebrile. General: No acute distress. Skin: Warm and dry. HEENT: Conjunctivae are pink. External jugular veins are distended but no clear jugular venous wave or hepatojugular reflux. Heart: Regular. No rubs. Lungs: Equal. No crackles or wheezes. Abdomen: Soft, nontender. Bowel sounds present. Extremities: No edema, clubbing, or cyanosis. IMPRESSION: Chronic kidney disease. Creatinine 3.5 and stable since admission. We are awaiting his 24 hour urine result which will complete this afternoon. cc: MD Miguel Vega MD
[2018-09-02 07:12] LABS: HEMATOCRIT 36.5 % (42.0-52.0); HEMOGLOBIN 12.3 g/dL (14.0-18.0); MCH 26.8 PG (27-31); MCHC 33.7 g/dL (33-37); MCV 79.5 FL (81-99); PLT 162 X1000 (130-400); RBC 4.59 XMIL (4.7-6.1); RDW 16.9 % (11.5-14.5); WBC 4.65 X1000 (4.8-10.8)
[2018-09-02 07:49] LABS: ALB/GLOB RATIO 1.5; ALBUMIN 3.6 g/dL (3.5-5.0); CALCIUM 9.3 mg/dL (8.8-10.2); CREATININE 3.4 mg/dL (0.7-1.2); MAGNESIUM 1.9 mg/dL (1.5-2.7); POTASSIUM 4.6 mmol/L (3.5-5.1); TOTAL BILIRUBIN 1.57 mg/dL (0.20-1.00)
[2018-09-02] MEDS: ZOSYN 2.25 GM in NS 50 ML IV SCH ×2 (10:08→20:31)
[2018-09-02] MEDS: HEPARIN SUBQ SCH ×2 (10:08→20:30)
[2018-09-02] MEDS: ASPIRIN PO SCH (10:08)
[2018-09-02] MEDS: SODIUM BICARBONATE PO SCH ×2 (10:09→20:31)
[2018-09-02] MEDS: BIDIL PO SCH ×2 (10:09→20:30)
[2018-09-02] MEDS: COREG PO SCH ×2 (10:09→20:31)
[2018-09-02] MEDS: LASIX PO SCH (10:09)
--- NOTE | 2018-09-02 12:50 | CONSULTATION ---
DATE OF CONSULTATION: 09/02/2018 REFERRING PHYSICIAN: oTnio. HISTORY OF PRESENT ILLNESS: This 83-year-old male was admitted with weight loss, nausea/vomiting, and congestive heart failure. The patient was noted to have an elevated PSA to 19.26 on routine labs. The patient was seen in the Urology Clinic in 2013, and his PSA was normal. His PSA in April 2017 was increased to 4.53. Because of his age and other medical problems, it was decided to watch this, and he was to return in October 2017. He did not keep that appointment and has not been seen since April 2017. The patient states he is voiding without problems. He is on Hytrin 2 mg every night. He does have chronic kidney disease. He denies any problems with kidney stones. He does have a history of gout. He states he feels that he is voiding without difficulty. PAST MEDICAL HISTORY: Hypertension, gout, CVA x2 with no sequelae, renal insufficiency. PAST SURGICAL HISTORY: Carpal tunnel release, teeth extraction. SOCIAL HISTORY: No tobacco or alcohol use. ALLERGIES: He has no known drug allergies. REVIEW OF SYSTEMS: Other than his abdominal pain and some weight loss, he feels like he is doing well. He denies any recent pulmonary or bowel problems. PHYSICAL EXAMINATION: General: A normally developed, well-nourished, age-apparent, black male, oriented in all ways, and cooperative. HEENT: Normal for age. Lungs: Clear. Cardiovascular: Regular rate and rhythm. Abdomen: Flat, soft. Nontender. No hepatosplenomegaly or masses. Normal bowel sounds. Genitourinary: Normal male. Both testes down. Scrotal exam is normal. No inguinal hernias. Rectal: Normal sphincter tone. Prostate about 80-90 g, smooth and symmetric. Extremities: No clubbing, cyanosis, or edema. Neurologic: No focal deficits. DIAGNOSTIC STUDIES: He has a white count of 4.65, hemoglobin 12.3, hematocrit 36.5, and platelets are 162,000. Serum electrolytes have a sodium 135, potassium 4.6, chloride 100, bicarbonate 20, BUN 56, creatinine 3.4. His CEA was mildly elevated at 3.6. His PSA was 19.26. His urinalysis had 2+ bacteria, 10-20 white cells, and many epithelial cells. His urine culture was no growth. IMPRESSION: 1. Enlarged prostate with obstructive voiding. 2. Elevated prostate-specific antigen. 3. Chronic kidney disease. Recommend start Flomax at 0.4 mg every night. Will follow up in Clinic to schedule prostate ultrasound and biopsies. Thank you for this consultation. cc: MD Miguel Bullard MD
[2018-09-02 17:08] LABS: CREATININE 3.4 mg/dL (0.7-1.2)
[2018-09-02 17:16] LABS: UR CREATININE TOTAL 684.8 mg/24 (800-1800); UR PROTEIN 13.1 mg/dL
[2018-09-02] MEDS: HYTRIN PO SCH (20:30)
[2018-09-02] MEDS ORDERED: FLOMAX PO SCH (21:00)
--- NOTE | 2018-09-03 05:05 | PROGRESS NOTE ---
DATE: 09/02/2018 SUBJECTIVE: The patient has no complaints. He is sitting up in bed. She is eating a little bit better. OBJECTIVE: VITAL SIGNS: Blood pressure 95/71, heart rate 79, respiratory rate 17, temperature 98.1 degrees. CARDIOVASCULAR: Regular rate and rhythm. PULMONARY: Bilateral breath sounds. Clear to auscultation. GI: Soft, nontender, nondistended. Bowel sounds audible.] LABORATORY DATA: White count 4, hemoglobin and hematocrit 12 and 36, platelets 162. Sodium 135. PSA is 19.2. PROBLEM LIST: 1. Weight loss, Pt now has elevated PSA. We are going to continue to follow this. There is suspicion for possible prostate malignancy. I have consult to Urology to arrange outpatient biopsy. 2. Congestive heart failure with mild decompensation. Will continue medications and follow. 3. Acute kidney injury, stable. Continue with following closely. 4. Hyperthyroidism. Will continue thyroid function tests and are stable. Free T4 is intact. 5. Disposition. I anticipate discharge tomorrow if he is stable. cc: MD Miguel Garcia MD [facility]
[2018-09-03] MEDS: PRILOSEC PO SCH ×2 (05:36→06:10)
[2018-09-03 07:46] LABS: HEMATOCRIT 35.3 % (42.0-52.0); HEMOGLOBIN 11.8 g/dL (14.0-18.0); MCH 26.4 PG (27-31); MCHC 33.4 g/dL (33-37); PLT 150 X1000 (130-400); RBC 4.47 XMIL (4.7-6.1); RDW 16.7 % (11.5-14.5); WBC 4.05 X1000 (4.8-10.8)
[2018-09-03 08:06] LABS: CALCIUM 9.2 mg/dL (8.8-10.2); CREATININE 3.5 mg/dL (0.7-1.2); POTASSIUM 4.5 mmol/L (3.5-5.1)
[2018-09-03] MEDS: ZOSYN 2.25 GM in NS 50 ML IV SCH ×2 (09:45→11:37)
[2018-09-03] MEDS: LASIX PO SCH (09:46)
[2018-09-03] MEDS: COREG PO SCH ×2 (09:46→11:37)
[2018-09-03] MEDS: SODIUM BICARBONATE PO SCH (09:46)
[2018-09-03] MEDS: HEPARIN SUBQ SCH (09:46)
[2018-09-03] MEDS: ASPIRIN PO SCH (09:47)
[2018-09-03] MEDS: BIDIL PO SCH ×2 (09:55→11:37)
[2018-09-03 10:54] VITALS: BP 95/60
--- NOTE | 2018-09-03 15:53 | NEPHROLOGY PROGRESS NOTE ---
DATE: 09/03/2018 SUBJECTIVE: He is lying flat. No nausea, vomiting, shortness of breath. OBJECTIVE: Vital Signs: Blood pressure 95/60, heart rate 85, respirations 17, afebrile. General: No acute distress. Skin: Warm and dry. Neck: Neck veins are not distended. Heart: Regular. Lungs: Equal. No crackles. Abdomen: Soft, nontender. Bowel sounds present. Extremities: No edema, clubbing or cyanosis. IMPRESSION: Chronic kidney disease. Measured creatinine clearance was 14 mL/minute with only 84 mg of 24-hour urine protein marginal, but certainly could lead to uremia. His albumin is acceptable and he has no acute indications for dialysis. I would prefer to follow him in the office, and reassess before we consider renal replacement therapy. cc: MD Miguel Vega MD
--- NOTE | 2018-09-03 16:20 | Diag Imaging Result Doc PS360 ---
BONE SCAN, TOTAL BODY - 09/03/2018 INDICATION: elevated psa TECHNIQUE: 25.9 mCi of MDP was administered COMPARISON: None FINDINGS: There is moderately increased uptake at the right knee mainly at the medial joint compartment and the left ankle. There is also an area of indeterminate uptake at the left shoulder. Otherwise skeletal and soft tissue uptake is normal. IMPRESSION: Abnormal uptake at the left shoulder, right knee, and left ankle. Consider further evaluation with x-rays here. Electronically signed by Landon Jones 09/03/2018 4:18 PM
--- NOTE | 2018-09-04 07:12 | DISCHARGE SUMMARY ---
ADMISSION DATE: 08/31/2018 DISCHARGE DATE: 09/03/2018 PRIMARY CARE PHYSICIAN: None. ADMISSION DIAGNOSES: 1. Postprandial nausea with 20 pound weight loss. 2. An apparent new onset CHF. 3. Chronic kidney disease, baseline end-stage unknown. 4. Elevated anion gap metabolic acidosis. 5. Lactic acidosis. 6. Hypothyroidism. DISCHARGE DIAGNOSES: 1. Weight loss. 2. Elevated PSA with suspicion of possible prostate malignancy. 3. Congestive heart failure with mild decompensation. 4. Acute kidney injury, stable. 5. Hyperthyroidism. SUMMARY OF FINDINGS: This is an 83-year-old male who presented to the ER with a 1 month history of unintentional weight loss, postprandial nausea and vomiting. He stated he had not really been able to hold any food down for the past month, and has lost 20 pounds. He reported constipation type symptoms. He has not had a normal bowel movement for around 1 month as well. He reported also an occasional dry cough. He was noted to have a creatinine of 3.4, a total bilirubin of 2.3, and lactic acid of 3.7. Chest CT showed a moderate-sized pleural effusion, pulmonary edema, and left lower lobe atelectasis. Abdomen and pelvic CT showed small amount of ascites, but nothing acute in the abdomen. He was admitted. We consulted Nephrology, Cardiology and Urology. He had an echocardiogram on 08/30/2018 that showed an ejection fraction of 20% with severely reduced left ventricular systolic function. We did an abdominal ultrasound on 08/30/2018 that showed an incidental right pleural effusion, a small amount of ascites tracking around the liver, and a pulsatile portal vein venous flow may be associated with congestive heart failure. Nephrology ordered a 24-hour urine. There was really no change in his creatinine during the hospitalization. Urology recommended starting him on Flomax 0.4 mg every night, and to follow up in the clinic to schedule a prostate ultrasound and biopsies. Cardiology diuresed him and will continue him on his 40 mg p.o. of Lasix daily. It is now felt that he can safely be discharged home today. DISCHARGE MEDICATIONS: 1. Aspirin 81 mg p.o. daily. 2. Coreg 6.25 mg p.o. b.i.d. 3. Lasix 40 mg p.o. daily. 4. BiDil 1 p.o. b.i.d. 5. Sodium bicarbonate 1300 mg p.o. b.i.d. 6. Tamsulosin 0.4 mg p.o. at bedtime. 7. Allopurinol 100 mg p.o. b.i.d. 8. Tamsulosin 0.4 mg p.o. at bedtime. FOLLOWUP: He has an appointment with Cardiology, Dr. Pierson on 09/24/2018 at 10:00 in the morning. He is to follow up with Nephrology and Urology in the next week, and call the office for an appointment. All discharge instructions were reviewed with the patient, and he verbalized understanding. TIME SPENT: This is a 35 minute discharge for Deny Nayak. Dictated by LOU Velez for Reynaldo Rueda MD cc: LOU Velez MD Omar J. Sosa-Chirinos, MD Dr. Hughes Reginald D. Gladish, MD Ashish K. Basu, MD
--- NOTE | 2018-09-04 07:25 | DISCHARGE SUMMARY ---
ADMISSION DATE: 08/31/2018 DISCHARGE DATE: 09/03/2018 HISTORY: He is doing well on the day of discharge. No complaints. Breathing comfortably. Saturations were 96% on room air. White count is 4. Hemoglobin and hematocrit 11 and 35, and creatinine 3.5 all at baseline. I do think he has prostate malignancy, that is my main concern. I have ordered a bone scan just to rule out metastases. No clear evidence of metastases, but with his weight loss I am suspicious that it has progressed. We do not have evidence per se of malignancy, but his PSA is 19. Urology is planning for an outpatient cysto and biopsy. CHF appears to be compensated. Acute kidney injury is stable. DISPOSITION: Anticipate discharge today. The following medications have been initiated in the hospital. This is a [id number] encounter note with nurse practitioner. TIME SPENT: 32 minute discharge. cc: MD Miguel Garcia MD
[2018-09-04] MEDS ORDERED: ASPIRIN EC PO SCH (09:00)
== END 2018-09-03 16:32 | disposition home or self-care (01) | DRG 291 ==
LOC: P.MEDSURG 12:53 → P.ED 12:53 → SUATTDRO 23:24 → 3S 08-30 15:41 → 3N 08-31 15:26
PROVIDERS: ADMIT Internal Medicine; ATTEND Internal Medicine
CPT/HCPCS: 71010; 71045; 71250; 74176; 76705; 78306; 80048; 80053; 80061; 80196; 80307; 80324; 80329; 81001; 81050; 82003; 82009; 82378; 82550; 82570; 82575; 82607; 82746; 82948; 83605; 83690; 83721; 83735; 83880; 83935; 84153; 84156; 84300; 84439; 84443; 84484; 85025; 85027; 85610; 85730; 87040; 87088; 93005; 93010; 93306; 94640; 94761; 96361; 96374; 99285; A9270; A9503; G0103; G0480; G6038; G6039; J0610; J1644; J1940; J2405; J2543; J7030; XXXXX